=== PATIENT | female | born 1955 | race Caucasian/White ===

== ENCOUNTER 2017-02-13 07:10 | Emergency (ER) | payer SELFPAY ==
[~2017-02-13] VITALS: Ht 152.4 cm; Wt 74.4 kg
--- NOTE | 2017-02-13 07:15 | NUR ---
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
[2017-02-13] MEDS ORDERED: AMOX-430 PO (07:18)
[2017-02-13] MEDS ORDERED: IBUP-1481 PO (07:18)
[2017-02-13] MEDS ORDERED: MORPHINE SULFATE INJ 2 MG/ML DISP.SYRIN IV ONE (07:30)
[2017-02-13] MEDS ORDERED: NITROGLYCERIN PACKET 1 GM PACKET TD ONE (07:30)
[2017-02-13] MEDS ORDERED: ASPIRIN 325 MG TABLET PO ONE (07:30)
[2017-02-13] MEDS ORDERED: ONDANSETRON HCL/PF 4 MG/2 ML VIAL IVP ONE (07:30)
[2017-02-13] MEDS ORDERED: MORPHINE SULFATE INJ 10 MG/ML DISP.SYRIN ONE (07:35)
[2017-02-13] MEDS ORDERED: ASPIRIN 325 MG TABLET ONE (07:36)
[2017-02-13] MEDS ORDERED: NITROGLYCERIN 0.4 MG/TAB BOTTLE ONE (07:36)
[2017-02-13] MEDS ORDERED: ONDANSETRON HCL/PF 4 MG/2 ML VIAL ONE (07:36)
[2017-02-13 07:49] LABS: BASOPHILS % (AUTO) 0.4 % (0.0-2.0); EOSINOPHILS # (AUTO) 0.2 /CMM (0.0-0.7); EOSINOPHILS % (AUTO) 2.9 % (0.0-6.0); HEMATOCRIT 39 % (33-45); LYMPHOCYTES # (AUTO) 2.9 /CMM (0.8-4.8); LYMPHOCYTES % (AUTO) 45.4 % (20.0-44.0); MEAN CORPUSCULAR HEMOGLOBIN 28 PG (26.0-33.0); MEAN CORPUSCULAR HGB CONC 33 g/dl (31.0-36.0); MEAN CORPUSCULAR VOLUME 83 fL (82-100); MONOCYTES # (AUTO) 0.5 /CMM (0.1-1.30); MONOCYTES % (AUTO) 7.7 % (2.0-12.0); NEUTROPHILS # (AUTO) 2.8 /CMM (1.8-8.9); NEUTROPHILS % (AUTO) 43.6 % (43.0-81.0); PLATELET COUNT (AUTO) 280 /CMM (150-450); RDW COEFFICIENT OF VARIATION 13.1 (11.5-15.0); RED BLOOD CELL COUNT(AUTO) 4.73 MIL/uL (4.0-5.2); WHITE BLOOD COUNT (AUTO) 6.5 K/uL (4.3-11.0)
--- NOTE | 2017-02-13 07:52 | NUR ---
PER PT'S DAUGHTER- PT DOESNT HAVE CHEST PAIN, OR ANY TYPE OF PAIN. JUST A MODERATE ALLERGIC REACTION FROM UNKNOWN ETIOLOGY. REFUSED ALL PRESCRIBED MEDICATION
[2017-02-13 08:00] LABS: CALCIUM, SERUM 9.7 mg/dL (8.5-10.1); CARBON DIOXIDE 28 mmol/L (21-32); CHLORIDE 106 mmol/L (98-107); CREATININE 0.7 mg/dL (0.6-1.3); GLUCOSE 103 mg/dL (74-106); SODIUM SERUM 144 mmol/L (136-145); UREA NITROGEN, BLOOD 12 mg/dL (7-18)
[2017-02-13 08:07] LABS: TROPONIN I < 0.017 ng/mL (0.00-0.056)
[2017-02-13 08:08] LABS: INR 0.96 (0.87-1.13)
--- NOTE | 2017-02-13 08:37 | NUR ---
Patient discharged to home in stable condition. Written and verbal after care instructions given. Patient verbalizes understanding of instruction.
--- NOTE | 2017-02-13 08:37 | NUR ---
IV removed. Catheter intact and site benign. Pressure and 4x4 applied to site. No bleeding noted.
[2017-02-13 08:38] VITALS: BP 135/78
== END 2017-02-13 08:39 | disposition home or self-care (01) ==
LOC: ER 07:12
DX: R07.9 Chest pain, unspecified (principal); R68.84 Jaw pain; F41.1 Generalized anxiety disorder
CPT/HCPCS: 36415; 71010; 80048; 84484; 85025; 85730; 93005; 99285; A4606; Z7610; J2270; J2405